=== PATIENT | female | born 1990 | race Caucasian/White ===

== ENCOUNTER 2017-11-23 20:07 | Emergency (ER) | payer OTHER ==
[2017-11-23 20:32] VITALS: TEMP 98.1
--- NOTE | 2017-11-23 20:33 | EDPHY ---
General - History Smoking Status: Never smoked Narrative: CHIEF COMPLAINT: Vomiting, diarrhea, shortness of breath HISTORY OF PRESENT ILLNESS: Patient complains of sudden onset of vomiting and diarrhea earlier today. This happened around 12:00 p.m.. She awoke this morning with some gastric discomfort that was minimal. She had a sudden onset of vomiting at 12:00 p.m. that was followed by another. Very soon after she developed diarrhea. The 1st episode was "normal appearing" diarrhea. The subsequent episodes have been watery and bloody. She has abdominal discomfort but she does not colic pain. She also has shortness of breath this started at the same time of this. No chest pain. She describes it as feeling difficult to catch her breath. She has no fever. No medications taken. She is starting to feel less nauseated at this time. She arrived on Sunday from [place]. She was postop Plan today. Multiple friends in the home where she is staying have had the same complaints this week. No other associated complaints or modifying factors. REVIEW OF SYSTEMS: Ten systems reviewed and are negative unless otherwise noted in the HPI PCP: Back in [place] SPECIALISTS: None PAST MEDICAL HISTORY: No significant medical history PAST SURGICAL HISTORY: None SOCIAL HISTORY: Nonsmoker. 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 No wheezing, rhonchi or crackles Cardiovascular: Tachycardic rate. Regular rhythm. No murmur. Gastrointestinal: Abdomen is soft and nontender. No distention or tympany. Bowel sounds are present in all 4 quadrants. Neurological: GCS 15. A&O, nonfocal, normal gait. Strength is symmetric. Skin: Warm and dry, no rash. No petechiae or purpura Extremities: Nontender, no pedal edema Psychiatric: Mood and affect normal DIFFERENTIAL DIAGNOSES: Including but not limited to norovirus, gastroenteritis, enteritis, colitis, DVT MDM: 8:31 p.m. Vomiting, diarrhea with watery and bloody diarrhea. She also reports shortness of breath with normal oxygenation. She is tachycardic but in no acute distress. I have ordered IV fluid, laboratory studies and chest x-ray. GI pathogen panel been ordered. I will discuss with Dr. De La Fuente. 9:00 p.m. Patient has provided a stool sample and I visualized this. It is watery and grossly bloody. 9:25 p.m. Laboratory studies reveal hemoconcentration without leukocytosis. Chemistry consistent with dehydration. Chest x-ray is unremarkable. Influenza test negative. GI pathogen panel pending. Vital Signs improving with IV fluid resuscitation. 10:15 p.m. Patient re-evaluated. She has received nearly 2 L IV fluid. She is tolerating water. Her heart rate is still tachycardic but improved from time arrival. She states that she is feeling significantly better than time of arrival. Her shortness of breath has resolved with the IV fluid. I have ordered 1/3 L of IV fluid resuscitation. 11:30 p.m. Patient re-evaluated. She has received 3 L IV fluid. She has had a total of 3 bloody diarrhea bowel movements. She has attempted to urinate with minimal output. I have ordered 4th L of IV fluid. She is feeling better despite the continue output. She is tolerating intake of liquid by mouth. She no longer has any shortness of breath. Her heart rate has improved but is still tachycardic with a rate of 107 beats per minute during my examination. 12:35 a.m. Patient re-evaluated. She is feeling significantly better. She has received 4 L of IV fluid and has not ambulated to the restroom to urinate. Did offer admission the hospital for IV fluid resuscitation and monitoring, but she would like to be discharged home. I do feel that she is stable for discharge home at this time. Additionally, I will return here in the morning and will follow up on her GI pathogen panel. I will contact her with the results as needed. We discussed return to ED precautions for worsening symptoms, inability to intake by mouth, abdominal pain or fever. She is comfortable this plan and discharged home stable condition. SUPERVISION: Patient was independently examined, but I discussed the case with my secondary supervising physician Dr. De La Fuente ([facility]) Medical Decision Making: PHYSICIAN DOCUMENTATION: The patient was evaluated and managed by the Physician Forensic Manager and myself. I have reviewed the chart and agree with the findings and plan of care as documented. In addition, I examined the patient myself at 2345. History confirmed as everyone else in the family is sick, started having multiple episodes of bloody diarrhea today, no family history of Crohn's or ulcerative colitis and no abdominal pain currently. Physical findings as follows: T 36.7 , Abdomen soft and nontender. She is hungry. She is currently on her 4th L of IV fluid and would like to try and go home. We discussed no anti diarrheal medications such as Imodium or Lomotil given her bloody diarrhea. GI panel is pending. Likely acute infectious diarrhea. Supportive care only if e. coli or viral. I am the secondary supervising physician. (Qamar De La Fuente) - Diagnostics Imaging Results: Imaging Impressions Chest X-Ray 11/23/17 20:33 IMPRESSION: No evidence for acute cardiopulmonary abnormality. - Objective Vital Signs: Initial Vital Signs Heart Rate 134 H 11/23/17 20:11 Respiratory Rate 18 11/23/17 20:11 Blood Pressure 127/102 H 11/23/17 20:11 O2 Sat (%) 99 11/23/17 20:11 O2 Delivery Mode Room Air Allergies/Adverse Reactions: No Known Allergies Allergy (Unverified 11/23/17 20:16) Home Medications: Medication Instructions Recorded Control 11/23/17 Laboratory Results: Laboratory Results 11/23/17 20:30 11/23/17 20:30 11/23/17 11/23/17 11/23/17 20:41 20:30 20:30 WBC RBC Hgb Hct MCV MCH MCHC RDW Plt Count MPV Neut % (Auto) Lymph % (Auto) [place] % (Auto) Eos % (Auto) Baso % (Auto) Nucleat RBC Rel Count Absolute Neuts (auto) Absolute Lymphs (auto) Absolute Monos (auto) Absolute Eos (auto) Absolute Basos (auto) Absolute Nucleated RBC Immature Gran % Immature Gran # Sodium 141 mEq/L mEq/L (134-144) Potassium 3.6 mEq/L mEq/L (3.5-5.2) Chloride 108 mEq/L mEq/L (97-110) Carbon Dioxide 15 mEq/l L mEq/l (22-31) Anion Gap 18 mEq/L H mEq/L (8-16) BUN 19 mg/dL mg/dL (7-23) Creatinine 0.8 mg/dL mg/dL (0.6-1.0) Estimated GFR > 60 Glucose 148 mg/dL H mg/dL (70-100) Calcium 9.3 mg/dL mg/dL (8.5-10.4) Total Bilirubin 1.2 mg/dL mg/dL (0.1-1.4) Conjugated Bilirubin 0.3 mg/dL mg/dL (0.0-0.5) Unconjugated Bilirubin 0.9 mg/dL mg/dL (0.0-1.1) AST 18 IU/L IU/L (14-46) ALT 23 IU/L IU/L (9-52) Alkaline Phosphatase 66 IU/L IU/L (38-126) Total Protein 7.6 g/dL g/dL (6.3-8.2) Albumin 4.4 g/dL g/dL (3.5-5.0) Lipase 45 IU/L IU/L (23-300) Beta HCG, Qual NEGATIVE Nasal Influenza A PCR NEGATIVE FOR FLU A (NEGATIVE) Nasal Influenza B PCR NEGATIVE FOR FLU B (NEGATIVE) 11/23/17 20:30 WBC 6.97 10^3/uL 10^3/uL (3.80-9.50) RBC 5.51 10^6/uL H 10^6/uL (4.18-5.33) Hgb 17.8 g/dL H g/dL (12.6-16.3) Hct 49.0 % H % (38.0-47.0) MCV 88.9 fL fL (81.5-99.8) MCH 32.3 pg pg (27.9-34.1) MCHC 36.3 g/dL g/dL (32.4-36.7) RDW 11.9 % % (11.5-15.2) Plt Count 197 10^3/uL 10^3/uL (150-400) MPV 9.6 fL fL (8.7-11.7) Neut % (Auto) 90.6 % H % (39.3-74.2) Lymph % (Auto) 3.7 % L % (15.0-45.0) [place] % (Auto) 5.3 % % (4.5-13.0) Eos % (Auto) 0.0 % L % (0.6-7.6) Baso % (Auto) 0.3 % % (0.3-1.7) Nucleat RBC Rel Count 0.0 % % (0.0-0.2) Absolute Neuts (auto) 6.31 10^3/uL 10^3/uL (1.70-6.50) Absolute Lymphs (auto) 0.26 10^3/uL L 10^3/uL (1.00-3.00) Absolute Monos (auto) 0.37 10^3/uL 10^3/uL (0.30-0.80) Absolute Eos (auto) 0.00 10^3/uL L 10^3/uL (0.03-0.40) Absolute Basos (auto) 0.02 10^3/uL 10^3/uL (0.02-0.10) Absolute Nucleated RBC 0.00 10^3/uL 10^3/uL (0-0.01) Immature Gran % 0.1 % % (0.0-1.1) Immature Gran # 0.01 10^3/uL 10^3/uL (0.00-0.10) Sodium Potassium Chloride Carbon Dioxide Anion Gap BUN Creatinine Estimated GFR Glucose Calcium Total Bilirubin Conjugated Bilirubin Unconjugated Bilirubin AST ALT Alkaline Phosphatase Total Protein Albumin Lipase Beta HCG, Qual Nasal Influenza A PCR Nasal Influenza B PCR Microbiology Results: MICROBIOLOGY 11/23/17 21:04 Stool Gastrointestinal Tract Panel (PCR) - Final Norovirus Gi/Gii Medications Given: Discontinued Medications Sodium Chloride (Ns) 1,000 mls @ 0 mls/hr IV EDNOW ONE; Wide Open PRN Reason: Protocol Stop: 11/23/17 20:35 Last Admin: 11/23/17 20:30 Dose: 1,000 mls Sodium Chloride (Ns) 1,000 mls @ 0 mls/hr IV EDNOW ONE; Wide Open PRN Reason: Protocol Stop: 11/23/17 20:35 Last Admin: 11/23/17 21:12 Dose: 1,000 mls Sodium Chloride (Ns) 1,000 mls @ 0 mls/hr IV EDNOW ONE; Wide Open PRN Reason: Protocol Stop: 11/23/17 22:11 Last Admin: 11/23/17 22:14 Dose: 1,000 mls Sodium Chloride (Ns) 1,000 mls @ 0 mls/hr IV EDNOW ONE; Wide Open PRN Reason: Protocol Stop: 11/23/17 23:17 Last Admin: 11/23/17 23:32 Dose: 1,000 mls Departure - Departure Disposition: Home, Routine, Self-Care Clinical Impression: Bloody diarrhea Vomiting Qualifiers: Vomiting type: unspecified Vomiting Intractability: non-intractable Nausea presence: with nausea Qualified Code(s): R11.2 - Nausea with vomiting, unspecified Condition: Good Instructions: Loperamide (By mouth), Traveler's Diarrhea (ED), Gastroenteritis (ED) Additional Instructions: 1. Continue fluid intake 2. Return to emergency department if no improvement in 24 hr 3. Return to emergency department for any chest pain or shortness of breath Referrals: [facility] [Other] - As per Instructions
[2017-11-23] MEDS ORDERED: NS 1,000 ML IV ONE ×4 (20:34→23:16)
[2017-11-23 20:40] LABS: PLATELET COUNT 197 10^3/uL (150-400)
[2017-11-24 00:53] VITALS: BP 123/84; PULSE 102; RESP 16; O2SAT 97
== END 2017-11-24 00:59 | disposition home or self-care (01) ==
DX: R11.2 Nausea with vomiting, unspecified (principal); R19.7 Diarrhea, unspecified; E86.9 Volume depletion, unspecified